=== PATIENT | male | born 1945 | race Caucasian/White ===

== ENCOUNTER → 2016-06-16 | Outpatient (CLI) | payer MEDICARE, OTHER ==
[~2016-06-16] MED LIST: /AUGM875TA OR; /CELE20CA OR; ACET65TA OR; ALLE25CA OR; AMOXICILLAN; COLA100C2 OR; DELTASONE PO; LOPE2TAB PO; MULTIVIT PO; MYLI40DR OR; No Historical Meds; PENTASA PO; PERC5TAB8 OR; PERC7.5T8 OR; PERC7.5T8 PO; PROBCAP13 PO; TAMS0.4C PO; VITA500C OR; VITA500T3 PO; VITATAB38 PO; [UNRECOGNIZED DRUG - OTHER]
[2016-06-16 11:39] LABS: ALBUMIN 2.9 GM/DL (3.2-5.2); ALBUMIN/GLOBULIN RATIO 0.63 (1.00-1.93); ALKALINE PHOSPHATASE 87 U/L (45-117); ALT/SGPT 18 U/L (12-78); ANION GAP 7 MEQ/L (8-16); AST/SGOT 13 U/L (15-37); BILIRUBIN,TOTAL 0.2 MG/DL (0.2-1.0); BLOOD UREA NITROGEN 14 MG/DL (7-18); CALCIUM LEVEL 8.5 MG/DL (8.8-10.2); CARBON DIOXIDE LEVEL 27 MEQ/L (21-32); CHLORIDE LEVEL 103 MEQ/L (98-107); CREATININE FOR GFR 0.99 MG/DL (0.70-1.30); GLOMERULAR FILTRATION RATE > 60.0 (>42); GLUCOSE, FASTING 102 MG/DL (83-110); MEAN CORPUSCULAR HEMOGLOBIN 30.3 pg (27.0-33.0); MEAN CORPUSCULAR HGB CONC 32.2 g/dl (32.0-36.5); POTASSIUM SERUM 4.2 MEQ/L (3.5-5.1); RED CELL DISTRIBUTION WIDTH 13.7 % (11.5-14.5); SODIUM LEVEL 137 MEQ/L (136-145); TOTAL PROTEIN 7.5 GM/DL (6.4-8.2); WHITE BLOOD COUNT 7.1 K/mm3 (4.0-10.0)
== END ==
LOC: M LAB 10:47
PROVIDERS: ATTEND Internal Medicine Gastroenterology
DX: K50.80 Crohn's disease of both small and large intestine without complications (principal)

== ENCOUNTER → 2016-09-15 | Outpatient (REF) | payer MEDICARE, OTHER | LOC: M LAB REF 14:05 | PROVIDERS: ATTEND Nurse Practitioner Adult Health | DX: K50.90 Crohn's disease, unspecified, without complications (principal) ==

== ENCOUNTER → 2016-12-15 | Outpatient (REF) | payer MEDICARE, OTHER | LOC: M LAB REF 12:46 | PROVIDERS: ATTEND Nurse Practitioner Adult Health | DX: K50.80 Crohn's disease of both small and large intestine without complications (principal) ==

== ENCOUNTER 2017-02-04 10:52 | Outpatient (CLI) | payer MEDICARE, OTHER ==
[2017-02-04] MEDS ORDERED: VEDOLIZUMAB 300 MG in NS 250 ML IV ONE (11:15)
== END 2017-02-04 12:30 | disposition home or self-care (01) ==
LOC: M INFU 10:52
PROVIDERS: ATTEND Internal Medicine
DX: K50.80 Crohn's disease of both small and large intestine without complications (principal); Z96.1 Presence of intraocular lens; Z87.19 Personal history of other diseases of the digestive system; Z87.891 Personal history of nicotine dependence; Z91.013 Allergy to seafood; Z79.899 Other long term (current) drug therapy
CPT/HCPCS: 96365; J3380

== ENCOUNTER 2017-02-18 13:14 | Outpatient (CLI) | payer MEDICARE, OTHER ==
[2017-02-18] MEDS: VEDOLIZUMAB 300 MG in NS 250 ML IV (14:00)
== END 2017-02-18 14:45 | disposition home or self-care (01) ==
LOC: M INFU 13:14
DX: K50.80 Crohn's disease of both small and large intestine without complications (principal); Z96.1 Presence of intraocular lens; Z87.19 Personal history of other diseases of the digestive system; Z87.891 Personal history of nicotine dependence; Z91.013 Allergy to seafood; Z79.899 Other long term (current) drug therapy
CPT/HCPCS: 96365

== ENCOUNTER → 2017-04-07 | Outpatient (REF) | payer MEDICARE, OTHER ==
[2017-04-07 14:16] LABS: C REACTIVE PROTEIN QUANTITATIV 1.62 MG/DL (0.00-0.30)
== END ==
LOC: M LAB REF 13:46
DX: K50.80 Crohn's disease of both small and large intestine without complications (principal)
CPT/HCPCS: 86140

== ENCOUNTER 2017-04-08 11:24 | Outpatient (CLI) | payer MEDICARE, OTHER ==
[2017-04-08] MEDS: VEDOLIZUMAB 300 MG in NS 250 ML IV (12:52)
== END 2017-04-08 13:30 | disposition home or self-care (01) ==
LOC: M INFU 11:24
DX: K50.80 Crohn's disease of both small and large intestine without complications (principal); Z79.899 Other long term (current) drug therapy; Z91.013 Allergy to seafood
CPT/HCPCS: J3380

== ENCOUNTER 2017-06-03 14:49 | Outpatient (CLI) | payer MEDICARE, OTHER ==
[2017-06-03] MEDS: VEDOLIZUMAB 300 MG in NS 250 ML IV (15:30)
== END 2017-06-03 16:30 | disposition home or self-care (01) ==
LOC: M INFU 14:49
DX: K50.80 Crohn's disease of both small and large intestine without complications (principal); Z79.899 Other long term (current) drug therapy; Z91.013 Allergy to seafood; Z87.891 Personal history of nicotine dependence
CPT/HCPCS: J3380

== ENCOUNTER → 2017-07-08 | Outpatient (REF) | payer MEDICARE, OTHER ==
[2017-07-08 12:25] LABS: C REACTIVE PROTEIN QUANTITATIV 2.23 MG/DL (0.00-0.30)
== END ==
LOC: M LAB REF 11:59
DX: K50.90 Crohn's disease, unspecified, without complications (principal); K63.5 Polyp of colon
CPT/HCPCS: 86140

== ENCOUNTER 2017-07-29 07:46 | Outpatient (CLI) | payer MEDICARE, OTHER ==
[2017-07-29] MEDS: VEDOLIZUMAB 300 MG in NS 250 ML IV (08:28)
== END 2017-07-29 09:10 | disposition home or self-care (01) ==
LOC: M INFU 07:46
DX: K50.80 Crohn's disease of both small and large intestine without complications (principal); Z79.899 Other long term (current) drug therapy; Z91.013 Allergy to seafood; Z87.891 Personal history of nicotine dependence
CPT/HCPCS: J3380

== ENCOUNTER 2017-09-22 11:23 | Outpatient (CLI) | payer MEDICARE, OTHER ==
[2017-09-22] MEDS: VEDOLIZUMAB 300 MG in NS 250 ML IV (12:26)
== END 2017-09-22 13:00 | disposition home or self-care (01) ==
LOC: M INFU 11:23
DX: K50.90 Crohn's disease, unspecified, without complications (principal); Z79.899 Other long term (current) drug therapy; Z91.013 Allergy to seafood
CPT/HCPCS: J3380

== ENCOUNTER → 2017-10-05 | Outpatient (REF) | payer MEDICARE, OTHER ==
[2017-10-05 14:01] LABS: C REACTIVE PROTEIN QUANTITATIV 3.19 MG/DL (0.00-0.30)
== END ==
LOC: M LAB REF 12:15
DX: K50.90 Crohn's disease, unspecified, without complications (principal); K63.5 Polyp of colon
CPT/HCPCS: 86140

== ENCOUNTER 2017-11-27 11:49 | Outpatient (CLI) | payer MEDICARE, OTHER ==
[2017-11-27] MEDS: USTEKINUMAB 390 MG in NS 172 ML IV (12:55)
[2017-11-27] MEDS: LORATADINE 10 MG TAB PO (12:55)
[2017-11-27] MEDS: ACETAMINOPHEN 325 MG TAB PO (12:55)
[2017-11-27] MEDS: 0.22 MICRON FILTER (METHACHOLINE/OCREVUS) XX (12:55)
== END 2017-11-27 15:00 | disposition home or self-care (01) ==
LOC: M INFU 11:49
DX: K50.90 Crohn's disease, unspecified, without complications (principal); Z91.013 Allergy to seafood
CPT/HCPCS: J3358

== ENCOUNTER → 2017-12-30 | Outpatient (REF) | payer MEDICARE, OTHER ==
[2017-12-30 12:46] LABS: C REACTIVE PROTEIN QUANTITATIV 0.81 MG/DL (0.00-0.30)
== END ==
LOC: M LAB REF 12:17
DX: K50.90 Crohn's disease, unspecified, without complications (principal); K63.5 Polyp of colon
CPT/HCPCS: 86140

== ENCOUNTER → 2018-03-23 | Outpatient (REF) | payer MEDICARE, OTHER | LOC: M LAB REF 12:31 | PROVIDERS: ATTEND Nurse Practitioner Adult Health | DX: K50.90 Crohn's disease, unspecified, without complications (principal); K63.5 Polyp of colon ==

== ENCOUNTER → 2018-03-31 | Outpatient (REF) | payer MEDICARE, OTHER | LOC: M LAB REF 15:45 | PROVIDERS: ATTEND Internal Medicine Gastroenterology | DX: R19.7 Diarrhea, unspecified (principal); K50.80 Crohn's disease of both small and large intestine without complications ==

== ENCOUNTER → 2018-06-16 | Outpatient (REF) | payer MEDICARE, OTHER ==
[~2018-06-16] MED LIST changes: -/CELE20CA OR; +CELE1CAP4 OR
== END ==
LOC: M LAB REF 12:46
PROVIDERS: ATTEND Nurse Practitioner Adult Health
DX: K50.90 Crohn's disease, unspecified, without complications (principal); K63.5 Polyp of colon

== ENCOUNTER → 2018-10-28 | Outpatient (REF) | payer MEDICARE, OTHER | LOC: M LAB REF 13:38 | PROVIDERS: ATTEND Internal Medicine | DX: K50.80 Crohn's disease of both small and large intestine without complications (principal) ==

== ENCOUNTER → 2019-01-28 | Outpatient (REF) | payer MEDICARE, OTHER | LOC: M LAB REF 12:28 | PROVIDERS: ATTEND Nurse Practitioner Adult Health | DX: K50.80 Crohn's disease of both small and large intestine without complications (principal) ==

== ENCOUNTER → 2019-03-04 | Outpatient (REF) | payer MEDICARE, OTHER | LOC: M LAB REF 10:50 | PROVIDERS: ATTEND Internal Medicine Gastroenterology | DX: K50.80 Crohn's disease of both small and large intestine without complications (principal) ==

== ENCOUNTER → 2019-04-21 | Outpatient (REF) | payer MEDICARE, OTHER | LOC: M LAB REF 12:13 | PROVIDERS: ATTEND Nurse Practitioner Adult Health | DX: K50.90 Crohn's disease, unspecified, without complications (principal) ==

== ENCOUNTER → 2019-07-14 | Outpatient (REF) | payer MEDICARE, OTHER | LOC: M LAB REF 12:11 | PROVIDERS: ATTEND Internal Medicine | DX: K50.80 Crohn's disease of both small and large intestine without complications (principal) ==

== ENCOUNTER → 2019-10-04 | Outpatient (REF) | payer MEDICARE, OTHER | LOC: M LAB REF 17:10 | PROVIDERS: ATTEND Nurse Practitioner Adult Health | DX: K50.80 Crohn's disease of both small and large intestine without complications (principal) ==

== ENCOUNTER → 2019-12-27 | Outpatient (REF) | payer MEDICARE, OTHER | LOC: M LAB REF 16:27 | PROVIDERS: ATTEND Nurse Practitioner Adult Health | DX: K50.80 Crohn's disease of both small and large intestine without complications (principal) ==

== ENCOUNTER → 2020-04-17 | Outpatient (REF) | payer MEDICARE, OTHER ==
[2020-04-17 14:31] LABS: C REACTIVE PROTEIN QUANTITATIV 0.7 MG/DL (0.00-0.30)
== END ==
LOC: M LAB REF 13:32
PROVIDERS: ATTEND Nurse Practitioner Adult Health
DX: K50.90 Crohn's disease, unspecified, without complications (principal); E55.9 Vitamin D deficiency, unspecified

== ENCOUNTER → 2020-07-04 | Outpatient (CLI) | payer MEDICARE, OTHER ==
--- NOTE | 2020-07-04 15:41 | REP ---
INDICATION: SOB. COMPARISON: 08/01/2011 frontal view TECHNIQUE: PA and lateral FINDINGS: The superior mediastinal structures are midline. The cardiac silhouette is unremarkable in size, shape, and position. The diaphragmatic surfaces of the lungs are regular, and the costophrenic angles are clear. The pulmonary hernandez are clear. The imaged osseous structures are intact. Incidental note is again made of unchanged mediastinal calcifications. IMPRESSION: There is no acute cardiopulmonary disease. <Electronically signed by Cisco Dsouza > 07/04/20 [id number]
[2020-07-04 17:04] LABS: C REACTIVE PROTEIN QUANTITATIV < 0.30 MG/DL (0.00-0.30)
[2020-07-04 17:10] LABS: VITAMIN B12 LEVEL 717 PG/ML (247-911)
== END ==
LOC: M WUC 14:17
PROVIDERS: ATTEND Nurse Practitioner Adult Health
DX: R06.02 Shortness of breath (principal); K50.80 Crohn's disease of both small and large intestine without complications

== ENCOUNTER → 2020-09-27 | Outpatient (CLI) | payer MEDICARE, OTHER ==
[2020-09-27 09:39] LABS: BASO % 0.8 % (0.0-1.0); EOS # 0.1 10^3/uL (0.0-0.5); EOS % 2.3 % (0.0-3.0); HEMATOCRIT 43.7 % (42.0-52.0); HEMOGLOBIN 14.6 g/dl (13.5-17.5); LYMPH % 20.3 % (24.0-44.0); MEAN CORPUSCULAR HEMOGLOBIN 31.1 pg (27.0-33.0); MEAN CORPUSCULAR HGB CONC 33.4 g/dl (32.0-36.5); MEAN CORPUSCULAR VOLUME 93.2 fl (80.0-96.0); MONO # 0.6 10^3/uL (0.0-0.8); MONO % 12.3 % (2.0-8.0); NEUTROPHILS # 3.1 10^3/uL (1.5-8.5); NEUTROPHILS % 64.1 % (36.0-66.0); PLATELET COUNT, AUTOMATED 349 10^3/uL (150-450); RED BLOOD COUNT 4.69 10^6/uL (4.30-6.10); WHITE BLOOD COUNT 4.9 10^3/uL (4.0-10.0)
[2020-09-27 10:07] LABS: ALBUMIN 3.7 GM/DL (3.2-5.2); ALT/SGPT 32 U/L (12-78); BILIRUBIN,TOTAL 0.4 MG/DL (0.2-1.0); BLOOD UREA NITROGEN 21 MG/DL (7-18); C REACTIVE PROTEIN QUANTITATIV 0.53 MG/DL (0.00-0.30); CALCIUM LEVEL 9.5 MG/DL (8.8-10.2); CARBON DIOXIDE LEVEL 29 MEQ/L (21-32); CHLORIDE LEVEL 103 MEQ/L (98-107); FERRITIN 71 NG/ML (26-388); GLOMERULAR FILTRATION RATE > 60.0 (>42); GLUCOSE, FASTING 98 MG/DL (70-100); MAGNESIUM LEVEL 2.2 MG/DL (1.8-2.4); POTASSIUM SERUM 4.7 MEQ/L (3.5-5.1); SODIUM LEVEL 137 MEQ/L (136-145); TOTAL PROTEIN 7.9 GM/DL (6.4-8.2)
[2020-09-27 10:14] LABS: TOTAL 25(OH) VITAMIN D 33.7 NG/ML (30.0-100.0); VITAMIN B12 LEVEL 719 PG/ML (247-911)
[2020-09-27 10:16] LABS: FOLATE > 24.0 NG/ML (>5.4)
== END ==
LOC: M LAB 08:26
PROVIDERS: ATTEND Internal Medicine Gastroenterology
DX: K50.80 Crohn's disease of both small and large intestine without complications (principal)

== ENCOUNTER → 2020-12-18 | Outpatient (CLI) | payer MEDICARE, OTHER ==
[2020-12-18 10:14] LABS: BASO # 0.1 10^3/uL (0.0-0.2); BASO % 0.7 % (0.0-1.0); EOS # 0.1 10^3/uL (0.0-0.5); HEMATOCRIT 43.3 % (42.0-52.0); HEMOGLOBIN 14.5 g/dl (13.5-17.5); LYMPH % 14.7 % (24.0-44.0); MEAN CORPUSCULAR HEMOGLOBIN 31.3 pg (27.0-33.0); MEAN CORPUSCULAR HGB CONC 33.5 g/dl (32.0-36.5); MEAN CORPUSCULAR VOLUME 93.5 fl (80.0-96.0); MONO # 0.5 10^3/uL (0.0-0.8); NEUTROPHILS # 5.1 10^3/uL (1.5-8.5); NEUTROPHILS % 75.2 % (36.0-66.0); PLATELET COUNT, AUTOMATED 352 10^3/uL (150-450); RED BLOOD COUNT 4.63 10^6/uL (4.30-6.10); WHITE BLOOD COUNT 6.8 10^3/uL (4.0-10.0)
[2020-12-18 10:50] LABS: ALBUMIN 3.5 GM/DL (3.2-5.2); ALT/SGPT 26 U/L (12-78); BILIRUBIN,TOTAL 0.4 MG/DL (0.2-1.0); BLOOD UREA NITROGEN 20 MG/DL (7-18); C REACTIVE PROTEIN QUANTITATIV 0.41 MG/DL (0.00-0.30); CALCIUM LEVEL 10.1 MG/DL (8.8-10.2); CARBON DIOXIDE LEVEL 25 MEQ/L (21-32); CHLORIDE LEVEL 106 MEQ/L (98-107); CREATININE FOR GFR 1.03 MG/DL (0.70-1.30); FERRITIN 66 NG/ML (26-388); GLOMERULAR FILTRATION RATE > 60.0 (>42); GLUCOSE, FASTING 99 MG/DL (70-100); MAGNESIUM LEVEL 2.1 MG/DL (1.8-2.4); POTASSIUM SERUM 4.6 MEQ/L (3.5-5.1); SODIUM LEVEL 138 MEQ/L (136-145); TOTAL PROTEIN 7.8 GM/DL (6.4-8.2)
[2020-12-18 11:51] LABS: FOLATE > 24.0 NG/ML (>5.4); TOTAL 25(OH) VITAMIN D 38.8 NG/ML (30.0-100.0); VITAMIN B12 LEVEL 739 PG/ML (247-911)
== END ==
LOC: M LAB 08:31
PROVIDERS: ATTEND Internal Medicine Gastroenterology
DX: K50.80 Crohn's disease of both small and large intestine without complications (principal)

== ENCOUNTER → 2021-03-13 | Outpatient (CLI) | payer MEDICARE, OTHER ==
[2021-03-13 09:17] LABS: BASO % 0.8 % (0.0-1.0); EOS # 0.1 10^3/uL (0.0-0.5); EOS % 1.7 % (0.0-3.0); HEMATOCRIT 40.6 % (42.0-52.0); HEMOGLOBIN 13.6 g/dl (13.5-17.5); LYMPH # 1.2 10^3/uL (1.5-5.0); LYMPH % 22.6 % (24.0-44.0); MEAN CORPUSCULAR HEMOGLOBIN 31.1 pg (27.0-33.0); MEAN CORPUSCULAR HGB CONC 33.5 g/dl (32.0-36.5); MEAN CORPUSCULAR VOLUME 92.7 fl (80.0-96.0); MONO # 0.5 10^3/uL (0.0-0.8); NEUTROPHILS # 3.4 10^3/uL (1.5-8.5); NEUTROPHILS % 64.7 % (36.0-66.0); PLATELET COUNT, AUTOMATED 328 10^3/uL (150-450); RED BLOOD COUNT 4.38 10^6/uL (4.30-6.10); WHITE BLOOD COUNT 5.2 10^3/uL (4.0-10.0)
[2021-03-13 09:48] LABS: ALBUMIN 3.4 GM/DL (3.2-5.2); ALT/SGPT 29 U/L (12-78); BILIRUBIN,TOTAL 0.4 MG/DL (0.2-1.0); BLOOD UREA NITROGEN 19 MG/DL (7-18); C REACTIVE PROTEIN QUANTITATIV 0.34 MG/DL (0.00-0.30); CALCIUM LEVEL 9.1 MG/DL (8.8-10.2); CARBON DIOXIDE LEVEL 24 MEQ/L (21-32); CHLORIDE LEVEL 106 MEQ/L (98-107); CREATININE FOR GFR 1.06 MG/DL (0.70-1.30); FERRITIN 60 NG/ML (26-388); GLOMERULAR FILTRATION RATE > 60.0 (>42); GLUCOSE, FASTING 100 MG/DL (70-100); MAGNESIUM LEVEL 2.2 MG/DL (1.8-2.4); POTASSIUM SERUM 4.3 MEQ/L (3.5-5.1); SODIUM LEVEL 137 MEQ/L (136-145); TOTAL PROTEIN 7.3 GM/DL (6.4-8.2)
[2021-03-13 09:51] LABS: FOLATE > 24.0 NG/ML; TOTAL 25(OH) VITAMIN D 34.2 NG/ML (30.0-100.0); VITAMIN B12 LEVEL 674 PG/ML
== END ==
LOC: M LAB 08:28
PROVIDERS: ATTEND Internal Medicine Gastroenterology
DX: K50.80 Crohn's disease of both small and large intestine without complications (principal)

== ENCOUNTER → 2021-06-18 | Outpatient (CLI) | payer MEDICARE, OTHER ==
[2021-06-18 14:17] LABS: BASO % 0.3 % (0.0-1.0); EOS % 0.6 % (0.0-3.0); HEMATOCRIT 38.6 % (42.0-52.0); HEMOGLOBIN 13.5 g/dl (13.5-17.5); LYMPH # 1.4 10^3/uL (1.5-5.0); LYMPH % 21.4 % (24.0-44.0); MEAN CORPUSCULAR HEMOGLOBIN 31.9 pg (27.0-33.0); MEAN CORPUSCULAR VOLUME 91.3 fl (80.0-96.0); MONO # 0.6 10^3/uL (0.0-0.8); MONO % 8.8 % (2.0-8.0); NEUTROPHILS # 4.6 10^3/uL (1.5-8.5); NEUTROPHILS % 68.6 % (36.0-66.0); PLATELET COUNT, AUTOMATED 387 10^3/uL (150-450); RED BLOOD COUNT 4.23 10^6/uL (4.30-6.10); WHITE BLOOD COUNT 6.7 10^3/uL (4.0-10.0)
[2021-06-18 14:39] LABS: ALBUMIN 3.4 GM/DL (3.2-5.2); ALT/SGPT 35 U/L (12-78); BILIRUBIN,TOTAL 0.2 MG/DL (0.2-1.0); BLOOD UREA NITROGEN 20 MG/DL (7-18); CALCIUM LEVEL 9.2 MG/DL (8.8-10.2); CARBON DIOXIDE LEVEL 24 MEQ/L (21-32); CHLORIDE LEVEL 107 MEQ/L (98-107); CREATININE FOR GFR 1.05 MG/DL (0.70-1.30); FERRITIN 94 NG/ML (26-388); GLOMERULAR FILTRATION RATE > 60.0 (>42); GLUCOSE, FASTING 167 MG/DL (70-100); MAGNESIUM LEVEL 2.1 MG/DL (1.8-2.4); POTASSIUM SERUM 3.9 MEQ/L (3.5-5.1); SODIUM LEVEL 138 MEQ/L (136-145); TOTAL PROTEIN 7.1 GM/DL (6.4-8.2)
[2021-06-18 14:44] LABS: FOLATE 22.3 NG/ML
[2021-06-18 14:46] LABS: TOTAL 25(OH) VITAMIN D 35.1 NG/ML (30.0-100.0)
== END ==
LOC: M LAB 13:17
PROVIDERS: ATTEND Internal Medicine Gastroenterology
DX: K50.80 Crohn's disease of both small and large intestine without complications (principal)

== ENCOUNTER → 2021-10-01 | Outpatient (REF) | payer MEDICARE, OTHER | LOC: M LAB REF 16:05 | PROVIDERS: ATTEND Internal Medicine | DX: K50.80 Crohn's disease of both small and large intestine without complications (principal) ==

== ENCOUNTER → 2021-12-23 | Outpatient (CLI) | payer MEDICARE, OTHER ==
[2021-12-23 09:19] LABS: BASO % 0.8 % (0.0-1.0); EOS # 0.1 10^3/uL (0.0-0.5); EOS % 1.7 % (0.0-3.0); HEMOGLOBIN 13.6 g/dl (13.5-17.5); LYMPH % 18.6 % (24.0-44.0); MEAN CORPUSCULAR HEMOGLOBIN 31.4 pg (27.0-33.0); MEAN CORPUSCULAR HGB CONC 33.2 g/dl (32.0-36.5); MEAN CORPUSCULAR VOLUME 94.7 fl (80.0-96.0); MONO # 0.5 10^3/uL (0.0-0.8); MONO % 8.8 % (2.0-8.0); NEUTROPHILS # 3.7 10^3/uL (1.5-8.5); NEUTROPHILS % 69.9 % (36.0-66.0); PLATELET COUNT, AUTOMATED 329 10^3/uL (150-450); RED BLOOD COUNT 4.33 10^6/uL (4.30-6.10); WHITE BLOOD COUNT 5.2 10^3/uL (4.0-10.0)
[2021-12-23 09:54] LABS: ALBUMIN 3.2 GM/DL (3.2-5.2); ALT/SGPT 22 U/L (12-78); BILIRUBIN,TOTAL 0.4 MG/DL (0.2-1.0); BLOOD UREA NITROGEN 17 MG/DL (7-18); CALCIUM LEVEL 9.2 MG/DL (8.8-10.2); CARBON DIOXIDE LEVEL 26 MEQ/L (21-32); CHLORIDE LEVEL 106 MEQ/L (98-107); CREATININE FOR GFR 1.02 MG/DL (0.70-1.30); GLOMERULAR FILTRATION RATE > 60.0 (>42); GLUCOSE, FASTING 107 MG/DL (70-100); POTASSIUM SERUM 4.1 MEQ/L (3.5-5.1); SODIUM LEVEL 137 MEQ/L (136-145); TOTAL PROTEIN 7.3 GM/DL (6.4-8.2)
== END ==
LOC: M LAB 08:26
PROVIDERS: ATTEND Internal Medicine Gastroenterology
DX: K50.80 Crohn's disease of both small and large intestine without complications (principal)

== ENCOUNTER → 2022-03-24 | Outpatient (CLI) | payer MEDICARE, OTHER ==
[2022-03-24 08:52] LABS: BASO % 0.6 % (0.0-1.0); EOS # 0.1 10^3/uL (0.0-0.5); EOS % 1.6 % (0.0-3.0); HEMATOCRIT 41.1 % (42.0-52.0); HEMOGLOBIN 13.6 g/dl (13.5-17.5); LYMPH # 1.2 10^3/uL (1.5-5.0); MEAN CORPUSCULAR HEMOGLOBIN 30.8 pg (27.0-33.0); MEAN CORPUSCULAR HGB CONC 33.1 g/dl (32.0-36.5); MEAN CORPUSCULAR VOLUME 93.2 fl (80.0-96.0); MONO # 0.5 10^3/uL (0.0-0.8); MONO % 9.3 % (2.0-8.0); NEUTROPHILS # 3.4 10^3/uL (1.5-8.5); NEUTROPHILS % 65.3 % (36.0-66.0); PLATELET COUNT, AUTOMATED 326 10^3/uL (150-450); RED BLOOD COUNT 4.41 10^6/uL (4.30-6.10); WHITE BLOOD COUNT 5.1 10^3/uL (4.0-10.0)
[2022-03-24 09:20] LABS: C REACTIVE PROTEIN QUANTITATIV < 0.40 MG/DL (<1.0)
[2022-03-24 09:21] LABS: ALBUMIN 3.3 G/DL (3.2-5.2); ALKALINE PHOSPHATASE 84 U/L (46-116); ALT/SGPT 21 U/L (7.0-40); AST/SGOT 28 U/L (<34); BILIRUBIN,TOTAL 0.4 MG/DL (0.3-1.2); BLOOD UREA NITROGEN 20 MG/DL (9-23); CALCIUM LEVEL 8.9 MG/DL (8.3-10.6); CARBON DIOXIDE LEVEL 25 MMOL/L (20-31); CHLORIDE LEVEL 103 MMOL/L (98-107); CREATININE FOR GFR 0.94 MG/DL (0.70-1.30); GLOMERULAR FILTRATION RATE > 60.0 (>42); GLUCOSE, FASTING 116 MG/DL (74-106); POTASSIUM SERUM 4.1 MMOL/L (3.5-5.1); SODIUM LEVEL 137 MMOL/L (136-145)
== END ==
LOC: M LAB 08:22
PROVIDERS: ATTEND Internal Medicine Gastroenterology
DX: K50.80 Crohn's disease of both small and large intestine without complications (principal)

== ENCOUNTER → 2022-06-23 | Outpatient (CLI) | payer MEDICARE, OTHER ==
[2022-06-23 09:45] LABS: BASO % 0.5 % (0.0-1.0); EOS # 0.1 10^3/uL (0.0-0.5); EOS % 0.9 % (0.0-3.0); HEMATOCRIT 41.2 % (42.0-52.0); HEMOGLOBIN 13.9 g/dl (13.5-17.5); LYMPH # 1.1 10^3/uL (1.5-5.0); MEAN CORPUSCULAR HEMOGLOBIN 31.7 pg (27.0-33.0); MEAN CORPUSCULAR HGB CONC 33.7 g/dl (32.0-36.5); MEAN CORPUSCULAR VOLUME 93.8 fl (80.0-96.0); MONO # 0.4 10^3/uL (0.0-0.8); MONO % 6.9 % (2.0-8.0); NEUTROPHILS # 4.1 10^3/uL (1.5-8.5); NEUTROPHILS % 72.3 % (36.0-66.0); PLATELET COUNT, AUTOMATED 319 10^3/uL (150-450); RED BLOOD COUNT 4.39 10^6/uL (4.30-6.10); WHITE BLOOD COUNT 5.7 10^3/uL (4.0-10.0)
[2022-06-23 10:06] LABS: ALBUMIN 3.2 G/DL (3.2-5.2); ALKALINE PHOSPHATASE 88 U/L (46-116); ALT/SGPT 20 U/L (7.0-40); AST/SGOT 22 U/L (<34); BILIRUBIN,TOTAL 0.4 MG/DL (0.3-1.2); BLOOD UREA NITROGEN 22 MG/DL (9-23); C REACTIVE PROTEIN QUANTITATIV < 0.40 MG/DL (<1.0); CALCIUM LEVEL 8.8 MG/DL (8.3-10.6); CARBON DIOXIDE LEVEL 25 MMOL/L (20-31); CHLORIDE LEVEL 106 MMOL/L (98-107); CREATININE FOR GFR 0.93 MG/DL (0.70-1.30); GLOMERULAR FILTRATION RATE > 60.0 (>42); GLUCOSE, FASTING 134 MG/DL (74-106); POTASSIUM SERUM 4.1 MMOL/L (3.5-5.1); SODIUM LEVEL 137 MMOL/L (136-145); TOTAL PROTEIN 6.8 G/DL (5.7-8.2)
== END ==
LOC: M LAB 08:51
PROVIDERS: ATTEND Internal Medicine Gastroenterology
DX: K50.80 Crohn's disease of both small and large intestine without complications (principal)

== ENCOUNTER → 2022-09-25 | Outpatient (REF) | payer MEDICARE, OTHER | LOC: M LAB REF 17:43 | PROVIDERS: ATTEND Nurse Practitioner Family | DX: K50.80 Crohn's disease of both small and large intestine without complications (principal) ==

== ENCOUNTER → 2022-10-29 | Outpatient (REF) | payer MEDICARE, OTHER | LOC: M LAB REF 16:12 | PROVIDERS: ATTEND Nurse Practitioner Family | DX: N39.0 Urinary tract infection, site not specified (principal) ==

== ENCOUNTER → 2022-12-19 | Outpatient (REF) | payer MEDICARE, OTHER ==
[2022-12-19 18:23] LABS: C REACTIVE PROTEIN QUANTITATIV < 0.40 MG/DL (<1.0)
[2022-12-19 18:24] LABS: IRON (FE) 142 UG/DL (65-175); PERCENT SATURATION 35.9 % (19.7-50.0); TOTAL IRON BINDING CAPACITY 396 UG/DL (250-425)
[2022-12-19 18:29] LABS: FERRITIN 74.4 NG/ML (10.5-307.3); VITAMIN B12 LEVEL 582 PG/ML (211-911)
== END ==
LOC: M LAB REF 16:14
PROVIDERS: ATTEND Nurse Practitioner Family
DX: K50.80 Crohn's disease of both small and large intestine without complications (principal); Z85.828 Personal history of other malignant neoplasm of skin

== ENCOUNTER → 2023-03-17 | Outpatient (REF) | payer MEDICARE, OTHER ==
[2023-03-17 19:55] LABS: C REACTIVE PROTEIN QUANTITATIV 0.5 MG/DL (<1.0)
[2023-03-17 19:57] LABS: PERCENT SATURATION 30.3 % (19.7-50.0)
[2023-03-17 19:59] LABS: FERRITIN 67.8 NG/ML (10.5-307.3)
== END ==
LOC: M LAB REF 17:41
PROVIDERS: ATTEND Nurse Practitioner Family
DX: K50.80 Crohn's disease of both small and large intestine without complications (principal)

== ENCOUNTER → 2023-06-09 | Outpatient (REF) | payer MEDICARE, OTHER ==
[2023-06-09 15:05] LABS: FERRITIN 70.3 NG/ML (10.5-307.3); TOTAL 25(OH) VITAMIN D 42.4 NG/ML (20.0-100.0)
[2023-06-09 15:09] LABS: C REACTIVE PROTEIN QUANTITATIV < 0.40 MG/DL (<1.0); VITAMIN B12 LEVEL 600 PG/ML (211-911)
[2023-06-09 15:13] LABS: IRON (FE) 124 UG/DL (65-175); TOTAL IRON BINDING CAPACITY 400 UG/DL (250-425)
== END ==
LOC: M LAB REF 13:25
PROVIDERS: ATTEND Nurse Practitioner Family
DX: K50.80 Crohn's disease of both small and large intestine without complications (principal)

== ENCOUNTER → 2023-08-31 | Outpatient (REF) | payer MEDICARE, OTHER ==
[2023-08-31 14:18] LABS: FERRITIN 68.7 NG/ML (10.5-307.3)
[2023-08-31 14:20] LABS: PERCENT SATURATION 24.4 % (19.7-50.0)
[2023-08-31 14:22] LABS: TOTAL 25(OH) VITAMIN D 47.9 NG/ML (20.0-100.0)
== END ==
LOC: M LAB REF 12:26
PROVIDERS: ATTEND Internal Medicine
DX: K50.80 Crohn's disease of both small and large intestine without complications (principal)

== ENCOUNTER → 2023-09-22 | Outpatient (REF) | payer MEDICARE, OTHER | LOC: M LAB REF 13:51 | PROVIDERS: ATTEND Nurse Practitioner Family | DX: K50.80 Crohn's disease of both small and large intestine without complications (principal) ==

== ENCOUNTER → 2023-12-01 | Outpatient (REF) | payer MEDICARE, OTHER ==
[2023-12-01 17:39] LABS: C REACTIVE PROTEIN QUANTITATIV < 0.40 MG/DL (<1.0)
[2023-12-01 17:41] LABS: IRON (FE) 100 UG/DL (65-175); PERCENT SATURATION 23.8 % (19.7-50.0); TOTAL IRON BINDING CAPACITY 421 UG/DL (250-425)
[2023-12-01 17:44] LABS: VITAMIN B12 LEVEL 622 PG/ML (211-911)
== END ==
LOC: M LAB REF 16:38
PROVIDERS: ATTEND Nurse Practitioner Family
DX: K50.80 Crohn's disease of both small and large intestine without complications (principal); D50.9 Iron deficiency anemia, unspecified

== ENCOUNTER → 2024-02-19 | Outpatient (REF) | payer MEDICARE, OTHER ==
[2024-02-19 14:10] LABS: C REACTIVE PROTEIN QUANTITATIV < 0.50 MG/DL (<1.0); IRON (FE) 110 UG/DL (65-175)
[2024-02-19 14:17] LABS: VITAMIN B12 LEVEL 672 PG/ML (211-911)
== END ==
LOC: M LAB REF 12:04
PROVIDERS: ATTEND Nurse Practitioner Family
DX: K50.80 Crohn's disease of both small and large intestine without complications (principal)

== ENCOUNTER → 2024-05-16 | Outpatient (REF) | payer MEDICARE, OTHER ==
[2024-05-16 13:27] LABS: C REACTIVE PROTEIN QUANTITATIV < 0.50 MG/DL (<1.0); IRON (FE) 107 UG/DL (65-175)
[2024-05-16 13:28] LABS: FERRITIN 132.5 NG/ML (10.5-307.3); PERCENT SATURATION 27.9 % (19.7-50.0); TOTAL IRON BINDING CAPACITY 384 UG/DL (250-425)
[2024-05-16 13:30] LABS: VITAMIN B12 LEVEL 954 PG/ML (211-911)
== END ==
LOC: M LAB REF 12:17
PROVIDERS: ATTEND Nurse Practitioner Family
DX: K50.90 Crohn's disease, unspecified, without complications (principal)

== ENCOUNTER → 2024-11-18 | Outpatient (CLI) | payer MEDICARE, OTHER ==
[~2024-11-18] MED LIST changes: +PROHANCE 279.3MG/ML 15ML VIAL As Ordered ONE
== END ==
LOC: M RAD 10:22
PROVIDERS: ATTEND Urology
DX: R97.20 Elevated prostate specific antigen [PSA] (principal); N42.89 Other specified disorders of prostate; N32.3 Diverticulum of bladder; N40.0 Benign prostatic hyperplasia without lower urinary tract symptoms
CPT/HCPCS: 72197; A9576

== ENCOUNTER → 2024-11-30 | Outpatient (CLI) | payer MEDICARE, OTHER ==
[~2024-11-30] MED LIST changes: -PROHANCE 279.3MG/ML 15ML VIAL As Ordered ONE
[2024-11-30 10:16] LABS: BASO # 0.0 10^3/uL (0.0-0.2); BASO % 0.6 % (0.0-1.0); EOS # 0.0 10^3/uL (0.0-0.5); EOS % 0.0 % (0.0-3.0); LYMPH # 0.7 10^3/uL (1.5-5.0); LYMPH % 13.8 % (24.0-44.0); MONO # 0.3 10^3/uL (0.0-0.8); MONO % 5.4 % (2.0-8.0); NEUTROPHILS # 4.3 10^3/uL (1.5-8.5); NEUTROPHILS % 80.0 % (36.0-66.0); PLATELET COUNT, AUTOMATED 330 10^3/uL (150-450)
[2024-11-30 10:39] LABS: ALT/SGPT 21 U/L (7.0-40); AST/SGOT 27 U/L (<34); C REACTIVE PROTEIN QUANTITATIV < 0.50 MG/DL (<1.0); CALCIUM LEVEL 9.2 MG/DL (8.3-10.6); CARBON DIOXIDE LEVEL 26 MMOL/L (20-31); CHLORIDE LEVEL 105 MMOL/L (98-107); CREATININE FOR GFR 0.94 MG/DL (0.70-1.30); GLOMERULAR FILTRATION RATE 82.5 (>42); IRON (FE) 103 UG/DL (65-175); PERCENT SATURATION 26.7 % (19.7-50.0); POTASSIUM SERUM 4.4 MMOL/L (3.5-5.1); SODIUM LEVEL 140 MMOL/L (136-145)
[2024-11-30 10:41] LABS: TOTAL 25(OH) VITAMIN D 61.2 NG/ML (20.0-100.0); VITAMIN B12 LEVEL 640 PG/ML (211-911)
== END ==
LOC: M LAB 08:43
PROVIDERS: ATTEND Internal Medicine Gastroenterology
DX: K50.90 Crohn's disease, unspecified, without complications (principal)

== ENCOUNTER → 2024-12-26 | Outpatient (CLI) | payer MEDICARE, OTHER ==
[2024-12-28 12:23] LABS: PSA % FREE NOT CALCULATED % (calc) (>25); PSA FREE 1.5 ng/mL; PSA TOTAL 11.2 ng/mL (< OR = 4.0)
== END ==
LOC: M LAB 07:24
PROVIDERS: ATTEND Urology
DX: R97.20 Elevated prostate specific antigen [PSA] (principal); N40.1 Benign prostatic hyperplasia with lower urinary tract symptoms; N42.89 Other specified disorders of prostate

== ENCOUNTER → 2025-02-03 | Outpatient (REF) | payer MEDICARE, OTHER | LOC: M SMT 17:24 | PROVIDERS: ATTEND Urology | DX: R97.20 Elevated prostate specific antigen [PSA] (principal) ==